=== PATIENT | female | born 1940 | race Hispanic/Latino ===

== ENCOUNTER 2020-01-24 20:12 | Emergency (ER) | payer SELFPAY ==
--- NOTE | 2020-01-24 21:06 | Event Note ---
ED Screening Note ED Screening Note: pt began having neck pain and chest pain that began two days ago no fall or injury no radiation states worse with movement and combing her hair no SOB no n/v/d no leg swelling PMHx HTN no cardiac hx allergy: cipro former smoker 40 years ago This initial assessment/diagnostic orders/clinical plan/treatment(s) is/are subject to change based on patients health status, clinical progression and re- assessment by fellow clinical providers in the ED. Further treatment and workup at subsequent clinical providers discretion. Patient/guardian urged not to elope from the ED as their condition may be serious if not clinically assessed and managed. Initial orders include:CP protocol
--- NOTE | 2020-01-24 21:32 | XRay Report ---
CHEST 2 VIEWS INDICATION: MAIN: CP; Chest pain started on Sun. Unable to describe. N&V on Sat. Denies MARISA or cough. MAEW. Nonla bored. radiates to neck. Manuel. . COMPARISON: None. FINDINGS: Support devices: None. Heart: Within normal limits. Lungs/Pleura: No acute air space or interstitial disease. Prior granulomatous exposure. No significan t pleural effusion. IMPRESSION: No acute findings. Signer Name: Toy Sandhu MD Signed: 01/24/2020 9:27 PM Workstation Name: [email or web address]
[2020-01-24 21:53] LABS: Basophils % (Auto) 0.2 % (0.0-1.8); Eosinophils # (Auto) 1.3 K/mm3 (0.0-0.4); Eosinophils % (Auto) 12.1 % (0.0-4.3); Hematocrit 43.1 % (30.3-42.9); Hemoglobin 14.2 gm/dl (10.1-14.3); Lymphocytes # (Auto) 2.6 K/mm3 (1.2-5.4); Lymphocytes % (Auto) 24.9 % (13.4-35.0); Mean Corpuscular HGB Conc 33 % (30-34); Mean Corpuscular Volume 99 fl (79-97); Monocytes # (Auto) 0.7 K/mm3 (0.0-0.8); Monocytes % (Auto) 6.6 % (0.0-7.3); Platelet Count 202 K/mm3 (140-440); Red Blood Count 4.37 M/mm3 (3.65-5.03); Red Cell Distribution Width 12.9 % (13.2-15.2)
[2020-01-24 22:04] LABS: INR 1.04 (0.87-1.13)
[2020-01-24 22:05] LABS: Partial Thromboplastin Time 32.9 Sec. (24.2-36.6)
[2020-01-24 22:29] VITALS: BP 164/75
[2020-01-24 22:39] LABS: Alanine Aminotransferase 13 units/L (7-56); Albumin 4.6 g/dL (3.9-5); BUN/Creatinine Ratio 17; Blood Urea Nitrogen 15 mg/dL (7-17); Calcium 10.1 mg/dL (8.4-10.2); Hemolysis Index 6
[2020-01-24] MEDS ORDERED: METOCLOPRAMIDE 10 MG/2 ML INJ IV ONE (22:41)
[2020-01-24] MEDS ORDERED: ACETAMINOPHEN 325 MG TAB PO ONE (22:41)
[2020-01-24] MEDS ORDERED: diphenhydrAMINE 50 MG/ML VIAL IV ONE (22:41)
[2020-01-24] MEDS ORDERED: FAMOTIDINE 20 MG/2 ML INJ IV ONE (22:41)
[2020-01-24] MEDS ORDERED: LIDOCAINE (4%) 40 MG/ML TOPICAL SOLN 50 ML BOTTLE TP ONE (22:41)
[2020-01-24] MEDS ORDERED: MORPHINE 4 MG/1 ML INJ IV ONE (22:41)
--- NOTE | 2020-01-24 22:42 | Emergency Department Report ---
ED General Adult HPI - General Chief complaint: Chest Pain Stated complaint: CHEST PAIN/KAMINSKI Time Seen by Provider: 01/24/20 21:03 Source: patient, family, RN notes reviewed Mode of arrival: Ambulatory Limitations: No Limitations - History of Present Illness Initial comments: The patient is a pleasant 79-year-old female who is not known to myself previous ly, visiting from [facility] in the [facility] for 4 months. She does not have a local primary care doctor. She reports a history of hypertension, arthritis, and costochondritis. She presents to the ER with a complaint of headache, frontal, right-sided parietal and temporal, it is not described as sudden or thunderclap in nature, it is not described as maximal intensity, it is not described as sudden or thunderclap, she describes it as aching and throbbing, and indicates is been there for a few days. She denies loss of vision, jaw claudication, ocular pain. She also has bilateral paracervical and trapezius pain. She denies focal extremity weakness and/or numbness. She denies DVT and pulmonary embolism risk factors. She also complains of arthritic pain in her bilateral shoulders, and "costochondritis" on her right and left anterior chest wall. Her chest wall pain increases with palpation, range of motion, and it decreases with rest. Her symptoms were partially relieved at home with Excedrin, and acetaminophen. She denies exertional shortness of breath, vomiting, diaphoresis, abdominal pain, irritative and obstructive urinary symptoms. In the emergency room, she was treated with intranasal lidocaine, morphine, Reglan, Benadryl, fluids, which basically resolved all of her symptoms. -: Gradual, days(s) Location: head, neck, chest, left, right, upper extremity Quality: other Consistency: other Improves with: other Worsens with: other Associated Symptoms: other - Related Data Previous Rx's Medication Instructions Recorded Last Taken Type Acetaminophen [Non-Aspirin Extra 500 mg PO Q6HR PRN #30 tablet 01/25/20 Unknown Rx Strength] Metoclopramide [Reglan] 10 mg PO QID PRN #30 tablet 01/25/20 Unknown Rx Allergies Allergy/AdvReac Type Severity Reaction Status Date / Time ciprofloxacin [From Cipro] Allergy Rash Verified 01/24/20 20:31 ED Review of Systems ROS: Stated complaint: CHEST PAIN/KAMINSKI Other details as noted in HPI Constitutional: denies: fever Eyes: denies: eye pain, eye discharge ENT: other (There is no jaw claudication). denies: dental pain Respiratory: denies: shortness of breath Cardiovascular: other (Please see history of present illness). denies: syncope Gastrointestinal: denies: nausea, vomiting Musculoskeletal: arthralgia, myalgia Skin: denies: lesions Neurological: headache. denies: weakness, numbness, paresthesias Psychiatric: anxiety ED Past Medical Hx - Past Medical History Hx Hypertension: Yes - Surgical History Past Surgical History?: Yes Additional Surgical History: RIGHT KNEE - Social History Smoking Status: Never Smoker Substance Use Type: None - Medications Home Medications: Home Medications Medication Instructions Recorded Confirmed Last Taken Type Acetaminophen [Non-Aspirin Extra 500 mg PO Q6HR PRN #30 tablet 01/25/20 Unknown Rx Strength] Metoclopramide [Reglan] 10 mg PO QID PRN #30 tablet 01/25/20 Unknown Rx ED Physical Exam - General Limitations: No Limitations General appearance: alert, in no apparent distress - Head Head exam: Present: atraumatic, normocephalic, other (There is no temporal tenderness. There is no temporal pulsation) - Eye Eye exam: Present: normal appearance, PERRL, EOMI, other (Visual acuity intact to finger counting and color perception at a close distance). Absent: nystagmus - ENT ENT exam: Present: normal exam, normal orophraynx, mucous membranes moist, normal external ear exam - Neck Neck exam: Present: normal inspection, tenderness (There is reproducible paracervical and trapezius tenderness. There is no carotid bruit. There is no obvious hematoma.), full ROM - Respiratory Respiratory exam: Present: normal lung sounds bilaterally, chest wall tenderness. Absent: respiratory distress, wheezes, rales, rhonchi, stridor - Cardiovascular Cardiovascular Exam: Present: regular rate, normal rhythm, normal heart sounds. Absent: bradycardia, tachycardia, irregular rhythm, systolic murmur, diastolic murmur, rubs, gallop - GI/Abdominal GI/Abdominal exam: Present: soft, normal bowel sounds. Absent: distended, tenderness, guarding, rebound, rigid, pulsatile mass - Extremities Exam Extremities exam: Present: normal inspection, full ROM, other (2+ pulses noted in the bilateral upper and lower extremities. There is no palpable cord. negative Homans sign. Muscular compartments are soft. The pelvis is stable.). Absent: pedal edema, calf tenderness - Back Exam Back exam: Present: normal inspection, full ROM. Absent: tenderness, CVA tenderness (R), CVA tenderness (L), paraspinal tenderness, vertebral tenderness - Neurological Exam Neurological exam: Present: alert, normal gait, other (There is no facial droop. The tongue is midline. Extraocular movements are intact bilaterally. There is 5 out of 5 strength in bilateral upper and lower extremities. Sensation is intact to light touch bilateral upper and lower extremities. There is no past- pointing. There is no pronator drift. There is normal [id number]. There is a normal gait.). Absent: motor sensory deficit - Psychiatric Psychiatric exam: Present: normal affect, normal mood, anxious - Skin Skin exam: Present: warm, dry, intact, normal color. Absent: rash ED Course Vital Signs 01/24/20 01/24/20 21:04 22:27 Temperature 98.3 F Pulse Rate 74 84 Respiratory 18 14 Rate Blood Pressure 173/62 Blood Pressure 164/75 [Left] O2 Sat by Pulse 96 98 Oximetry - Reevaluation(s) Reevaluation #1: 01/25/20 00:22 Differential diagnosis, including but not limited to: Tension headache, migraine headache, cluster headache, temporal arteritis, intracranial lesion, costochondritis, pneumonia, GERD, gastritis, hiatal hernia, acute coronary syndrome Assessment and plan: 79-year-old female presenting with multiple complaints Complaint #1 headache: Sedimentation rate less than 50, no temporal tenderness, no ocular symptoms, no jaw claudication, she is not sure if this is a new or old headache for her. This is quite unlikely to be temporal arteritis. She has a GCS of 15, with unremarkable neurologic examination. She does not describe sudden or thunderclap headache. We treated her headache supportively and symptomatically, and she felt much improved, and is noted to be walking with a steady gait. Given advanced age, CT scan of the brain, CT angiogram head and neck are obtained to exclude dissection/thrombosis we will reassess after CT scan has resulted Complaints #2, chest wall pain: Not currently tachycardic, tachypneic or hypoxic. Troponin negative x1, EKG fairly unremarkable, denies DVT and pulmonary embolism risk factors. X-ray the chest unremarkable. Chest wall pain is reproducible. Her advanced age and cardiovascular risk factor profile are reviewed and appreciated, as is her heart score, however, did not given duration of symptoms, objective unremarkable testing, and and availability to closely follow-up as an outpatient with our local cardiology practice, it is unlikely that the patient will benefit from admission to this hospital for cardiac re- stratification. Her face sheet was transmitted to our local [facility] cardiology group, and this hospital/emergency room has a practice/policy whereby patients may closely follow-up with outpatient cardiology to complete a risk stratification. Repeat troponin, repeat EKG pending Complaint #3: Polyarthritis. Patient has no redness, pus or streaking, there is reproducible muscular tenderness, and her examination is not consistent with cellulitis, compartment syndrome, fracture or dislocation. This is most likely age-related. Acetaminophen, outpatient follow-up. Reassess after aforementioned data points have resulted. Reevaluation #2: 01/25/20 01:03 Patient reassessed multiple times. She feels improved. Pain is basically resolved. CT scan brain, CT angiogram head and neck negative for acute disease. Repeat EKG is unchanged from prior. Troponin negative x2. Vital signs have remained stable. Repeat neurologic examination unremarkable. She will be given instructions to closely follow-up with outpatient primary care, and/or cardiology. Discussed this with patient a nd family, who have verbalized understanding. Patient resting comfortably, and in no acute distress. ED Medical Decision Making - Lab Data Result diagrams: 01/24/20 21:40 01/24/20 21:40 Vital Signs 01/24/20 01/24/20 21:04 22:27 Temperature 98.3 F Pulse Rate 74 84 Respiratory 18 14 Rate Blood Pressure 173/62 Blood Pressure 164/75 [Left] O2 Sat by Pulse 96 98 Oximetry Lab Results 01/24/20 01/24/20 01/24/20 Range/Units 21:40 21:40 21:40 WBC 10.4 (4.5-11.0) K/mm3 RBC 4.37 (3.65-5.03) M/mm3 Hgb 14.2 (10.1-14.3) gm/dl Hct 43.1 H (30.3-42.9) % MCV 99 H (79-97) fl MCH 33 H (28-32) pg MCHC 33 (30-34) % RDW 12.9 L (13.2-15.2) % Plt Count 202 (140-440) K/mm3 Lymph % (Auto) 24.9 (13.4-35.0) % Greenlee % (Auto) 6.6 (0.0-7.3) % Eos % (Auto) 12.1 H (0.0-4.3) % Baso % (Auto) 0.2 (0.0-1.8) % Lymph # 2.6 (1.2-5.4) K/mm3 Greenlee # 0.7 (0.0-0.8) K/mm3 Eos # 1.3 H (0.0-0.4) K/mm3 Baso # 0.0 (0.0-0.1) K/mm3 Seg Neutrophils % 56.2 (40.0-70.0) % Seg Neutrophils # 5.8 (1.8-7.7) K/mm3 ESR (0-20) mm/Hr PT 13.7 (12.2-14.9) Sec. INR 1.04 (0.87-1.13) APTT 32.9 (24.2-36.6) Sec. Sodium 141 (137-145) mmol/L Potassium 4.2 (3.6-5.0) mmol/L Chloride 104.0 (98-107) mmol/L Carbon Dioxide 23 (22-30) mmol/L Anion Gap 18 mmol/L BUN 15 (7-17) mg/dL Creatinine 0.9 (0.7-1.2) mg/dL Estimated GFR > 60 ml/min BUN/Creatinine Ratio 17 % Glucose 105 H (65-100) mg/dL Calcium 10.1 (8.4-10.2) mg/dL Magnesium (1.7-2.3) mg/dL Total Bilirubin 0.40 (0.1-1.2) mg/dL AST 21 (5-40) units/L ALT 13 (7-56) units/L Alkaline Phosphatase 121 (35-129) units/L Total Creatine Kinase (30-135) units/L Troponin T < 0.010 (0.00-0.029) ng/mL NT-Pro-B Natriuret Pep 95.61 (0-900) pg/mL Total Protein 7.6 (6.3-8.2) g/dL Albumin 4.6 (3.9-5) g/dL Albumin/Globulin Ratio 1.5 % 01/24/20 01/24/20 Range/Units 22:48 22:48 WBC (4.5-11.0) K/mm3 RBC (3.65-5.03) M/mm3 Hgb (10.1-14.3) gm/dl Hct (30.3-42.9) % MCV (79-97) fl MCH (28-32) pg MCHC (30-34) % RDW (13.2-15.2) % Plt Count (140-440) K/mm3 Lymph % (Auto) (13.4-35.0) % Greenlee % (Auto) (0.0-7.3) % Eos % (Auto) (0.0-4.3) % Baso % (Auto) (0.0-1.8) % Lymph # (1.2-5.4) K/mm3 Greenlee # (0.0-0.8) K/mm3 Eos # (0.0-0.4) K/mm3 Baso # (0.0-0.1) K/mm3 Seg Neutrophils % (40.0-70.0) % Seg Neutrophils # (1.8-7.7) K/mm3 ESR 31 (0-20) mm/Hr PT (12.2-14.9) Sec. INR (0.87-1.13) APTT (24.2-36.6) Sec. Sodium (137-145) mmol/L Potassium (3.6-5.0) mmol/L Chloride (98-107) mmol/L Carbon Dioxide (22-30) mmol/L Anion Gap mmol/L BUN (7-17) mg/dL Creatinine (0.7-1.2) mg/dL Estimated GFR ml/min BUN/Creatinine Ratio % Glucose (65-100) mg/dL Calcium (8.4-10.2) mg/dL Magnesium 2.10 (1.7-2.3) mg/dL Total Bilirubin (0.1-1.2) mg/dL AST (5-40) units/L ALT (7-56) units/L Alkaline Phosphatase (35-129) units/L Total Creatine Kinase 108 (30-135) units/L Troponin T (0.00-0.029) ng/mL NT-Pro-B Natriuret Pep (0-900) pg/mL Total Protein (6.3-8.2) g/dL Albumin (3.9-5) g/dL Albumin/Globulin Ratio % - EKG Data -: EKG Interpreted by [place] EKG shows normal: sinus rhythm Rate: normal - EKG Data When compared to previous EKG there are: previous EKG unavailable 01/25/20 00:25 There is no prior EKG available for comparison. Sinus rhythm, 70 bpm, normal axis, QTC within normal limits, there is low voltage. The EKG is not a STEMI. - Radiology Data Radiology results: pending, report reviewed, image reviewed Print Report Referring Physician: ALYSSIA GUTIÉRREZ Patient Name: JENNIE FISCHER Date of : 1940 Sex: Female Report Date: 2020-01-24 Report Status: Finalized Findings [address] [address] XRay Report Signed Patient: JENNIE FISCHER MR#: [id number] : 1940 Acct:[id number] Age/Sex: 79 / F ADM Date: 01/24/20 Loc: ED Attending Dr: Ordering Physician: DEXTER JENKINS Date of Service: 01/24/20 Procedure(s): XR chest routine 2V Accession Number(s): [id number] cc: DEXTER JENKINS Fluoro Time In Minutes: CHEST 2 VIEWS INDICATION: MAIN: CP; Chest pain started on Sun. Unable to describe. N V on Sat. Denies MARISA or cough. MAEW. Nonlabored. radiates to neck. Kaminski. . COMPARISON: None. FINDINGS: Support devices: None. Heart: Within normal limits. Lungs/Pleura: No acute air space or interstitial disease. Prior granulomatous exposure. No significant pleural effusion. IMPRESSION: No acute findings. Signer Name: Toy Sandhu MD Signed: 01/24/2020 9:27 PM Workstation Name: [id number] Transcribed By: JAYCEE Dictated By: Toy Sandhu MD Electronically Authenticated By: Toy Sandhu MD Signed Date/Time: 01/24/202126 DD/ 26 TD/TT: Print Report Referring Physician: TASNEEM NICHOLS Patient Name: JENNIE FISCHER Date of : 1940 Sex: Female Report Date: 2020-01-25 Report Status: Finalized Findings [facility] [address] [place] [address] Cat Scan Report Signed Patient: JENNIE FISCHER MR#: [id number] : 1940 Acct:[id number] Age/Sex: 79 / F ADM Date: 01/24/20 Loc: ED Attending Dr: Ordering Physician: TASNEEM NICHOLS MD Date of Service: 01/24/20 Procedure(s): CT angio neck Accession Number(s): [id number] cc: TASNEEM NICHOLS MD CTA NECK WITH CONTRAST HISTORY: Neck pain; Headaches COMPARISON: None. TECHNIQUE: Routine CTA of the neck was performed. 3-D/MIP reformats were postprocessed. Percentage stenosis is determined by direct quantitative measurements of diseased internal carotid artery diameter compared with normal distal internal carotid artery reference segments or by criteria similar to NASCET where applicable.All CT scans at this location are performed using CT dose reduction for ALARA by means of automated exposure control CONTRAST: 100 ml of Omnipaque 350 FINDINGS: Aortic arch: No significant abnormality. Cervical vertebral arteries: No significant abnormality. Common carotid arteries: No significant abnormality. Carotid bifurcations: Normal Cervical internal carotid arteries: No significant abnormality. Additional findings: No evidence of dissection of the craniocervical carotid and vertebral arteries. Subcentimeter-sized low- attenuation lesions are seen in both lobes of the thyroid gland. IMPRESSION: 1. No significant abnormality. Signer Name: Dixie Zafar MD Signed: 12:29 AM Workstation Name: [id number] Transcribed By: BS Dictated By: Dixie Thompson MD Electronically Authenticated By: Dixie Thompson MD Signed Date/Time: 01/25/2028 DD/ Print Report Referring Physician: TASNEEM NICHOLS Patient Name: JENNIE FISCHER Date of : 1940 Sex: Female Report Date: 2020-01-25 Report Status: Finalized Findings [address] [address] Cat Scan Report Signed Patient: JENNIE FISCHER MR#: [id number] : 1940 Acct:[id number] Age/Sex: 79 / F ADM Date: 01/24/20 Loc: ED Attending Dr: Ordering Physician: TASNEEM NICHOLS MD Date of Service: 01/24/20 Procedure(s): CT angio head Accession Number(s): [id number] cc: TASNEEM NICHOLS MD CTA HEAD WITH CONTRAST HISTORY: Headaches; neck pain COMPARISON: None. TECHNIQUE: Routine non-contrast CT Head, CTA of the head and post-contrast CT Head are performed. 3-D/MIP reformats postprocessed. All CT scans at this location are performed using CT dose reduction for ALARA by means of automated exposure control CONTRAST: 100 ml of Omnipaque 350 FINDINGS: CTA Head: Intracranial vertebral arteries: No significant abnormality. Basilar artery: No significant a bnormality. Posterior cerebral arteries: No significant abnormality. Intracranial internal carotid arteries: No significant abnormality. Anterior cerebral arteries: No significant abnormality. Middle cerebral arteries: No significant abnormality. Dural venous sinuses:Not optimally opacified. No sign ificant abnormality. Additional findings: None. IMPRESSION: Normal CTA of the brain. Signer Name: Dixie Zafar MD Signed: 01/25/2020 12:43 AM Workstation Name: [id number] Transcribed By: BS Dictated By: Dixie Thompson MD Electronically Authenticated By: Dixie Thompson MD Signed Date/Time: 01/25/20 0043 DD/ 0030 TD/TT: Print Report Referring Physician: TASNEEM NICHOLS Patient Name: JENNIE FISCHER Date of : 1940 Sex: Female Report Date: 2020-01-25 Report Status: Finalized Findings [address] [address] Cat Scan Report Signed Patient: JENNIE FISCHER MR#: [id number] : 1940 Acct:[id number] Age/Sex: 79 / F ADM Date: 01/24/20 Loc: ED Attending Dr: Ordering Physician: TASNEEM NICHOLS MD Date of Service: 01/24/20 Procedure(s): CT head/brain wo con Accession Number(s): [id number] cc: TASNEEM NICHOLS MD Head CT without intravenous contrast INDICATION: Headache COMPARISON: None FINDINGS: The ventricles are normal in size and position. No hemorrhage or extra-axial fluid collection. No edema or mass effect. No focal infarct seen. Portions of the sinuses visualized are clear. No skull fracture identified. IMPRESSION: Negative head CT Automated exposure control was utilized to diminish radiation dose Signer Name: Gerardo Johnson MD Signed: 01/25/2020 12:13 AM Workstation Name: [id number] Transcribed By: RABIA Dictated By: Gerardo Johnson MD Electronically Authenticated By: Gerardo Johnson MD Signed Date/Time: 01/25/2012 DD/ Critical care attestation.: If time is entered above; I have spent that time in minutes in the direct care of this critically ill patient, excluding procedure time. ED Disposition Clinical Impression: Headache, Chest wall pain, Neck pain, Polyarthropathy Disposition: DC-01 TO HOME OR SELFCARE Is pt being admited?: No Does the pt Need Aspirin: No Condition: Stable Instructions: Chest Pain (ED) Additional Instructions: Do not take metformin medication for the next 2 days, if patient takes this medication. Please make certain to drink at least 4 cups of water per the next 2 to 4 days. Take the Tylenol medication as needed and directed for pain, and Reglan medication as needed and directed for headache. Continue current outpatient medications otherwise. Recommend follow-up with an outpatient primary care doctor or tipple worker within the next 3 to 5 days. Return to the emergency room right away with new, worsened or different symptoms, or symptoms not present on the initial emergency room evaluation. No tome medicamentos con metformina shannon los prximos 2 sanchez, si el paciente grecia edwige medicamento. Asegrese de beber al menos 4 tazas de agua por los prximos 2 a 4 sanchez. Runnemede el medicamento Tylenol segn sea necesario y dirigido para el dolor, y el medicamento Reglan segn sea necesario y dirigido para el dolor de lesley. Contine con los medicamentos ambulatorios actuales de lo contrario Recomiende un seguimiento con un mdico de atencin primaria o cardilogo ambulatorio dentro de los prximos 3 a 5 sanchez. Regrese a la norma de emergencias de inmediato con sntomas nuevos, empeorados o diferentes, o sntomas que no estn presentes en la evaluacin inicial de la norma de emergencias. Referrals: EFE SMALL MD [Staff Physician] - 3-5 Days [facility] [Provider Group] - 3-5 Days [facility] [Provider Group] - 3-5 Days [facility] [Provider Group] - 3-5 Days
--- NOTE | 2020-01-25 00:17 | Cat Scan Report ---
Head CT without intravenous contrast INDICATION: Headache COMPARISON: None FINDINGS: The ventricles are normal in size and position. No hemorrhage or extra-axial fluid collecti on. No edema or mass effect. No focal infarct seen. Portions of the sinuses visualized are clear. No skull fracture identified. IMPRESSION: Negative head CT Automated exposure control was utilized to diminish radiation dose Signer Name: Gerardo Johnson MD Signed: 01/25/2020 12:13 AM Workstation Name: [id number]
--- NOTE | 2020-01-25 00:34 | Cat Scan Report ---
CTA NECK WITH CONTRAST HISTORY: Neck pain; Headaches COMPARISON: None. TECHNIQUE: Routine CTA of the neck was performed. 3-D/MIP reformats were postprocessed. Percentage s tenosis is determined by direct quantitative measurements of diseased internal carotid artery diamete r compared with normal distal internal carotid artery reference segments or by criteria similar to NA SCET where applicable.All CT scans at this location are performed using CT dose reduction for ALARA b y means of automated exposure control CONTRAST: 100 ml of Omnipaque 350 FINDINGS: Aortic arch: No significant abnormality. Cervical vertebral arteries: No significant abnormality. Common carotid arteries: No significant abnormality. Carotid bifurcations: Normal Cervical internal carotid arteries: No significant abnormality. Additional findings: No evidence of dissection of the craniocervical carotid and vertebral arteries. Subcentimeter-sized low-attenuation lesions are seen in both lobes of the thyroid gland. IMPRESSION: 1. No significant abnormality. Signer Name: Dixie Zafar MD Signed: 01/25/2020 12:29 AM Workstation Name: [id number]
--- NOTE | 2020-01-25 00:47 | Cat Scan Report ---
CTA HEAD WITH CONTRAST HISTORY: Headaches; neck pain COMPARISON: None. TECHNIQUE: Routine non-contrast CT Head, CTA of the head and post-contrast CT Head are performed. 3-D /MIP reformats postprocessed. All CT scans at this location are performed using CT dose reduction for ALARA by means of automated exposure control CONTRAST: 100 ml of Omnipaque 350 FINDINGS: CTA Head: Intracranial vertebral arteries: No significant abnormality. Basilar artery: No significant abnormality. Posterior cerebral arteries: No significant abnormality. Intracranial internal carotid arteries: No significant abnormality. Anterior cerebral arteries: No significant abnormality. Middle cerebral arteries: No significant abnormality. Dural venous sinuses:Not optimally opacified. No significant abnormality. Additional findings: None. IMPRESSION: Normal CTA of the brain. Signer Name: Dixie Zafar MD Signed: 01/25/2020 12:43 AM Workstation Name: [id number]
== END 2020-01-25 01:51 | disposition home or self-care (01) ==
LOC: ED 20:12
DX: M13.89 Other specified arthritis, multiple sites (principal); I10 Essential (primary) hypertension; Z88.1 Allergy status to other antibiotic agents
CPT/HCPCS: 36415; 70450; 70496; 70498; 71046; 80053; 82550; 83735; 83880; 84484; 85025; 85610; 85652; 85730; 93005; 93010; 96374; 96375; 99285; J1200; J2270; J2765; Q9967